=== PATIENT | male | born 1995 | race Caucasian/White ===

== ENCOUNTER 2023-01-07 19:55 | Emergency (ER) | payer MEDICAID, OTHER ==
[~2023-01-07] VITALS: Ht 175.3 cm; Wt 77.0 kg
[2023-01-07 21:25] VITALS: BP 135/54; PULSE 100; RESP 18; TEMP 98.4; O2SAT 98
[2023-01-07] MEDS ORDERED: LIDOCAINE HCL/PF 1% 10 MG/ML 5ML VIAL INFIL ONE (22:45)
[2023-01-07] MEDS ORDERED: BACITRACIN ZINC OINT UDPKT TOP ONE (22:45)
[2023-01-07] MEDS ORDERED: TETANUS, DIPHTHERIA, PERTUSSIS VAC/PF 0.5ML (>10YR OLD) IM ONE (22:45)
== END 2023-01-08 00:50 | disposition home or self-care (01) ==
LOC: ER 19:55
DX: S61.213A Laceration without foreign body of left middle finger without damage to nail, initial encounter (principal); W26.0XXA Contact with knife, initial encounter; Y93.89 Activity, other specified; Y92.89 Other specified places as the place of occurrence of the external cause; Y99.8 Other external cause status
CPT/HCPCS: 12002; 90471; 90715; 99283

== ENCOUNTER 2023-10-27 21:01 | Emergency (ER) | payer OTHER ==
[~2023-10-27] VITALS: Ht 175.3 cm; Wt 84.0 kg
[2023-10-27 21:09] VITALS: O2SAT 100
[2023-10-27] MEDS: LIDOCAINE HCL/EPINEPHRINE 1%-EPI 1:100,000 20 ML VIAL INFIL ONE ×2 (21:30→23:00)
[2023-10-27] MEDS: BACITRACIN ZINC OINT UDPKT TOP ONE (21:30)
[2023-10-27] MEDS: HYDROCODONE/ACETAMINOPHEN 5/325MG TABLET PO ONE (21:40)
[2023-10-27 23:00] VITALS: BP 119/69; PULSE 89; RESP 20; TEMP 36.83628; O2SAT 100
[2023-10-28] MEDS: HYDROCODONE/ACETAMINOPHEN 5/325MG TABLET PO ONE
[2023-10-28] MEDS: CEPHALEXIN 250MG CAPSULE PO STA
[2023-10-28] MEDS ORDERED: HYDR-4001 MT (00:06)
[2023-10-28] MEDS ORDERED: CEPH500T MT (00:06)
== END 2023-10-28 00:10 | disposition home or self-care (01) ==
LOC: ER 21:01
DX: S61.411A Laceration without foreign body of right hand, initial encounter (principal); S61.512A Laceration without foreign body of left wrist, initial encounter; W01.0XXA Fall on same level from slipping, tripping and stumbling without subsequent striking against object, initial encounter; Y93.89 Activity, other specified; Y92.89 Other specified places as the place of occurrence of the external cause; Y99.8 Other external cause status
CPT/HCPCS: 73100; 12005; 99283; J3490; Z7610 ×3